=== PATIENT | female | born 1945 | race Caucasian/White ===

== ENCOUNTER 2018-08-11 15:37 | Observation (INO) | payer OTHER ==
[~2018-08-11] VITALS: Ht 162.6 cm; Wt 67.5 kg
[~2018-08-11 15:37] MED LIST: ALPR.25 PO; AMIT25 PO; ASCO250CH PO; ASPI325EC PO; ASPI81EC; ASPI81EC PO; ATEN25; ATEN50 PO; ATENOLOL-? DOSE; Amitriptyline H25 MG PO; B COMPLEX WITH1 EACH PO; CALCAVITD PO; CEPH500 PO; CIPR500; CITA20 PO; CYAN1000I IM; CYCL10 PO; DIPH50 PO; DOCU100 PO; FERR325 PO; FLORASTOR PO; GABA100 PO; HYDACE7.5 PO; HYDMOR2 PO; Hair, Skin & N1 EACH PO; IBUHYD PO; INSLIS75I SC; INSUASPI SC; LEVO750 PO; LEVSOD25 PO; LORA2; MELO7.5; MELO7.5 PO; MEPE50 PO; METCAR500 PO; METO10 PO; METO5A PO; MOM PO; MULVITMINF PO; NAPR500 PO; NITR.4SL SL; NITR.6SL SL; OMEP10ER PO; OMEP20ER PO; OMEPRAZOLE MAGN20 MG PO; OXAP600 PO; PARO20; POTCHL20ER PO; PRAM.5 PO; PRED1 PO; PROZAC20 MG PO; QUET200; QUIN200; VENL75; VENL75ER PO; XANAX PO; ZOLP5 PO; Zofran4 MG PO; [UNRECOGNIZED DRUG - OTHER]; [UNRECOGNIZED DRUG - REMARK]; [UNRECOGNIZED DRUG - REMARK]; [UNRECOGNIZED DRUG - REMARK]
[2018-08-11] MEDS ORDERED: HYDR1TAB94 PO (16:01)
[2018-08-11] MEDS ORDERED: CARV25 PO (16:02)
[2018-08-11 16:19] LABS: BASOPHILS ABSOLUTE AUTO 0.04 K/mm3 (0.00-0.23); BASOPHILS PERCENT AUTO 0 % (0-2); EOSINOPHILS PERCENT AUTO 2 % (0-6); Hematocrit 37.3 % (33.0-51.0); Hemoglobin 11.7 g/dL (11.5-16.0); IMMATURE GRAN ABSOLUTE AUTO 0.03 K/mm3 (0.00-0.10); IMMATURE GRAN PERCENT AUTO 0 % (0-1); LYMPHOCYTES ABSOLUTE AUTO 1.86 K/mm3 (0.84-5.20); LYMPHOCYTES PERCENT AUTO 16 % (21-46); MONOCYTES ABSOLUTE AUTO 0.88 K/mm3 (0.16-1.47); MONOCYTES PERCENT AUTO 8 % (4-13); Mean Corpuscular HGB 28.8 pg (26.0-34.0); Mean Corpuscular HGB Conc 31.4 g/dL (31.5-36.5); Mean Corpuscular Volume 92 fL (80-100); Mean Platelet Volume 8.7 fL (9.1-12.4); NEUTROPHILS ABSOLUTE AUTO 8.53 K/mm3 (1.96-9.15); NEUTROPHILS PERCENT AUTO 74 % (41-73); Platelet Count 329 K/mm3 (150-400); RDW Coefficient Variation 13.9 % (11.7-14.2); RDW Standard Deviation 47.8 fL (35.1-46.3); Red Blood Cell Count 4.06 M/mm3 (3.80-5.20); White Blood Cell Count 11.54 K/mm3 (4.00-11.30)
[2018-08-11 16:33] LABS: Alanine Aminotransfer (ALT/SGP 16 U/L (12-78); Albumin, Blood 2.6 g/dL (3.4-5.0); Albumin/Globulin Ratio 0.5 (0.8-1.8); Alk Phos 129 U/L (50-136); Anion Gap 10 mmol/L (6-16); Aspartate Aminotrans (AST/SGOT 19 U/L (12-37); Bilirubin, Total 0.3 mg/dL (0.1-1.0); Blood Urea Nitrogen 11 mg/dL (8-24); Bun/Creatinine Ratio 14.5 (12.0-20.0); CO2, Blood 24 mmol/L (21-32); Calcium, Blood 8.5 mg/dL (8.5-10.1); Chloride, Blood 104 mmol/L (98-108); Creatinine, Blood 0.76 mg/dL (0.40-1.00); Globulin, Blood 5.1 g/dL (2.2-4.0); Glomerular Filtration Rate >60 (60-); Glucose, Blood 112 mg/dL (70-99); Potassium, Blood 3.4 mmol/L (3.5-5.5); Sodium, Blood 138 mmol/L (136-145); Total Protein, Blood 7.7 g/dL (6.4-8.2); Troponin I <0.015 ng/mL (0.000-0.040)
[2018-08-11] MEDS ORDERED: FLUO10 PO (21:35)
[2018-08-11] MEDS ORDERED: ATOR10 PO (21:35)
[2018-08-12 05:39] LABS: Anion Gap 11 mmol/L (6-16); Blood Urea Nitrogen 8 mg/dL (8-24); Bun/Creatinine Ratio 14.4 (12.0-20.0); CO2, Blood 23 mmol/L (21-32); Calcium, Blood 8.2 mg/dL (8.5-10.1); Chloride, Blood 105 mmol/L (98-108); Creatinine, Blood 0.56 mg/dL (0.40-1.00); Glomerular Filtration Rate >60 (60-); Glucose, Blood 131 mg/dL (70-99); Potassium, Blood 3.2 mmol/L (3.5-5.5); Sodium, Blood 139 mmol/L (136-145); Troponin I <0.015 ng/mL (0.000-0.040)
== END 2018-08-12 11:51 | disposition home or self-care (01) ==
LOC: ER 15:37 → MEDS 15:38 → ENPENDDIS 08-12 09:59 → MEDS 08-12 11:51
PROVIDERS: Emergency Medicine; Hospitalist
DX: R07.89 Other chest pain (principal); I10 Essential (primary) hypertension; K21.9 Gastro-esophageal reflux disease without esophagitis; M19.90 Unspecified osteoarthritis, unspecified site; F41.9 Anxiety disorder, unspecified; K22.4 Dyskinesia of esophagus; I25.2 Old myocardial infarction; J44.9 Chronic obstructive pulmonary disease, unspecified; E03.9 Hypothyroidism, unspecified; Z87.891 Personal history of nicotine dependence
CPT/HCPCS: 36415; 71046; 80048; 80053; 84484; 85025; 93005; 93010; 96374; 99285-25; J0360; J1650

== ENCOUNTER 2019-03-09 11:11 | Emergency (ER) | payer OTHER ==
[~2019-03-09] VITALS: Ht 162.6 cm; Wt 68.0 kg
[~2019-03-09 11:11] MED LIST changes: +ATOR10 PO; +CARV25 PO; +FLUO10 PO; +HYDR1TAB94 PO
[2019-03-09 11:44] LABS: BASOPHILS ABSOLUTE AUTO 0.05 K/mm3 (0.00-0.23); BASOPHILS PERCENT AUTO 1 % (0-2); EOSINOPHILS ABSOLUTE AUTO 0.25 K/mm3 (0.00-0.68); EOSINOPHILS PERCENT AUTO 3 % (0-6); Hematocrit 32.8 % (33.0-51.0); IMMATURE GRAN ABSOLUTE AUTO 0.03 K/mm3 (0.00-0.10); IMMATURE GRAN PERCENT AUTO 0 % (0-1); LYMPHOCYTES PERCENT AUTO 23 % (21-46); MONOCYTES ABSOLUTE AUTO 0.75 K/mm3 (0.16-1.47); MONOCYTES PERCENT AUTO 9 % (4-13); Mean Corpuscular HGB Conc 30.5 g/dL (31.5-36.5); Mean Corpuscular Volume 85 fL (80-100); Mean Platelet Volume 9.2 fL (9.1-12.4); NEUTROPHILS ABSOLUTE AUTO 5.54 K/mm3 (1.96-9.15); NEUTROPHILS PERCENT AUTO 64 % (41-73); Platelet Count 260 K/mm3 (150-400); RDW Coefficient Variation 16.6 % (11.7-14.2); RDW Standard Deviation 51.8 fL (35.1-46.3); Red Blood Cell Count 3.84 M/mm3 (3.80-5.20); White Blood Cell Count 8.62 K/mm3 (4.00-11.30)
[2019-03-09 12:00] LABS: Alanine Aminotransfer (ALT/SGP 13 U/L (12-78); Albumin/Globulin Ratio 0.7 (0.8-1.8); Alk Phos 107 U/L (50-136); Anion Gap 5 mmol/L (6-16); Aspartate Aminotrans (AST/SGOT 12 U/L (12-37); Bilirubin, Total 0.3 mg/dL (0.1-1.0); Blood Urea Nitrogen 13 mg/dL (8-24); Bun/Creatinine Ratio 16.9 (12.0-20.0); CO2, Blood 29 mmol/L (21-32); Calcium, Blood 8.5 mg/dL (8.5-10.1); Chloride, Blood 102 mmol/L (98-108); Creatinine, Blood 0.77 mg/dL (0.40-1.00); Globulin, Blood 4.3 g/dL (2.2-4.0); Glomerular Filtration Rate >60 (60-); Glucose, Blood 95 mg/dL (70-99); Potassium, Blood 3.9 mmol/L (3.5-5.5); Sodium, Blood 136 mmol/L (136-145); Total Protein, Blood 7.3 g/dL (6.4-8.2); Troponin I <0.015 ng/mL (0.000-0.040)
[2019-03-09] MEDS ORDERED: METF500 PO (12:07)
[2019-03-09] MEDS ORDERED: LISI5 PO (12:08)
[2019-03-09] MEDS ORDERED: FLUO10 PO (12:08)
[2019-03-09] MEDS ORDERED: TRELEGY ELLIPT1 EACH IH (12:09)
[2019-03-09] MEDS ORDERED: COMBIVENT RESPIM4 GM INH (12:09)
[2019-03-09] MEDS ORDERED: OMEP20ER PO (12:09)
[2019-03-09] MEDS ORDERED: AMIT50 PO (12:10)
[2019-03-09] MEDS ORDERED: ATOR10 PO (12:10)
[2019-03-09] MEDS ORDERED: PRAM.5 PO (12:11)
[2019-03-09] MEDS ORDERED: GABA100 PO (12:11)
[2019-03-09] MEDS ORDERED: NITR.4SL SL (12:11)
[2019-03-09] MEDS ORDERED: CARV6.25 PO (12:12)
[2019-03-09] MEDS ORDERED: HYDR1TAB94 PO (14:05)
== END 2019-03-09 15:26 | disposition home or self-care (01) ==
LOC: ER 11:11
PROVIDERS: Emergency Medicine
DX: S00.83XA Contusion of other part of head, initial encounter (principal); R55 Syncope and collapse; W01.198A Fall on same level from slipping, tripping and stumbling with subsequent striking against other object, initial encounter; Z88.0 Allergy status to penicillin; Z88.5 Allergy status to narcotic agent; Z91.041 Radiographic dye allergy status; Z79.899 Other long term (current) drug therapy; Z79.84 Long term (current) use of oral hypoglycemic drugs; I10 Essential (primary) hypertension; E03.9 Hypothyroidism, unspecified; J44.9 Chronic obstructive pulmonary disease, unspecified; I25.2 Old myocardial infarction; Z87.891 Personal history of nicotine dependence
CPT/HCPCS: 70450; 71046; 72125; 80053; 84484; 85025; 93005; 93010; 96374; 96375; 99285-25; A9270; J1170; J2405

== ENCOUNTER → 2019-03-31 | Outpatient (CLI) | payer OTHER ==
[~2019-03-31] MED LIST changes: +AMIT50 PO; +CARV6.25 PO; +COMBIVENT RESPIM4 GM INH; +LISI5 PO; +METF500 PO; +Phenergan6.25 MG/5 PO; +TRELEGY ELLIPT1 EACH IH
== END | disposition home or self-care (01) ==
LOC: LAB 18:56 → LAB SHORT 18:56 → LAB FUT 02-17 12:30
DX: J42 Unspecified chronic bronchitis (principal)
CPT/HCPCS: 87070; 87077; 87147; 87186; 87205

== ENCOUNTER 2019-04-22 11:42 | Emergency (ER) | payer OTHER ==
[~2019-04-22] VITALS: Ht 162.6 cm; Wt 72.6 kg
[~2019-04-22 11:42] MED LIST changes: -Phenergan6.25 MG/5 PO
[2019-04-22 12:23] LABS: BASOPHILS ABSOLUTE AUTO 0.04 K/mm3 (0.00-0.23); BASOPHILS PERCENT AUTO 1 % (0-2); EOSINOPHILS ABSOLUTE AUTO 0.16 K/mm3 (0.00-0.68); EOSINOPHILS PERCENT AUTO 2 % (0-6); Hematocrit 31.4 % (33.0-51.0); Hemoglobin 9.9 g/dL (11.5-16.0); IMMATURE GRAN ABSOLUTE AUTO 0.03 K/mm3 (0.00-0.10); IMMATURE GRAN PERCENT AUTO 0 % (0-1); LYMPHOCYTES ABSOLUTE AUTO 1.96 K/mm3 (0.84-5.20); LYMPHOCYTES PERCENT AUTO 22 % (21-46); MONOCYTES ABSOLUTE AUTO 0.99 K/mm3 (0.16-1.47); MONOCYTES PERCENT AUTO 11 % (4-13); Mean Corpuscular HGB 25.6 pg (26.0-34.0); Mean Corpuscular HGB Conc 31.5 g/dL (31.5-36.5); Mean Corpuscular Volume 81 fL (80-100); Mean Platelet Volume 8.7 fL (9.1-12.4); NEUTROPHILS ABSOLUTE AUTO 5.56 K/mm3 (1.96-9.15); NEUTROPHILS PERCENT AUTO 64 % (41-73); Platelet Count 305 K/mm3 (150-400); RDW Coefficient Variation 17.5 % (11.7-14.2); Red Blood Cell Count 3.86 M/mm3 (3.80-5.20); White Blood Cell Count 8.74 K/mm3 (4.00-11.30)
[2019-04-22 12:43] LABS: Alanine Aminotransfer (ALT/SGP 18 U/L (12-78); Albumin, Blood 2.9 g/dL (3.4-5.0); Albumin/Globulin Ratio 0.7 (0.8-1.8); Alk Phos 90 U/L (50-136); Anion Gap 6 mmol/L (6-16); Aspartate Aminotrans (AST/SGOT 17 U/L (12-37); Bilirubin, Total 0.3 mg/dL (0.1-1.0); Blood Urea Nitrogen 8 mg/dL (8-24); Bun/Creatinine Ratio 13.2 (12.0-20.0); CO2, Blood 26 mmol/L (21-32); Calcium, Blood 8.6 mg/dL (8.5-10.1); Chloride, Blood 100 mmol/L (98-108); Creatinine, Blood 0.61 mg/dL (0.40-1.00); Globulin, Blood 4.3 g/dL (2.2-4.0); Glomerular Filtration Rate >60 (60-); Glucose, Blood 85 mg/dL (70-99); Potassium, Blood 4.4 mmol/L (3.5-5.5); Sodium, Blood 132 mmol/L (136-145); Total Protein, Blood 7.2 g/dL (6.4-8.2); Troponin I <0.015 ng/mL (0.000-0.040)
[2019-04-22] MEDS ORDERED: Phenergan6.25 MG/5 PO (14:25)
== END 2019-04-22 14:30 | disposition home or self-care (01) ==
LOC: ER 11:42
PROVIDERS: Emergency Medicine
DX: J42 Unspecified chronic bronchitis (principal); I10 Essential (primary) hypertension; Z87.891 Personal history of nicotine dependence; Z79.899 Other long term (current) drug therapy; Z79.84 Long term (current) use of oral hypoglycemic drugs
CPT/HCPCS: 71046; 80053; 84484; 85025; 93005; 93010; 99285-25

== ENCOUNTER → 2020-02-24 | Outpatient (CLI) | payer OTHER ==
[~2020-02-24] MED LIST changes: +Phenergan6.25 MG/5 PO
== END | disposition home or self-care (01) ==
LOC: LAB 11:05 → LAB SHORT 11:05
DX: J42 Unspecified chronic bronchitis (principal)
CPT/HCPCS: 87070; 87077; 87147; 87186; 87205

== ENCOUNTER → 2020-05-08 | Outpatient (CLI) | payer OTHER ==
[2020-05-08 14:56] LABS: Alanine Aminotransfer (ALT/SGP 18 U/L (12-78); Albumin, Blood 3.1 g/dL (3.4-5.0); Albumin/Globulin Ratio 0.8 (0.8-1.8); Alk Phos 81 U/L (50-136); Anion Gap 8 mmol/L (6-16); Aspartate Aminotrans (AST/SGOT 18 U/L (12-37); Bilirubin, Total 0.2 mg/dL (0.1-1.0); Blood Urea Nitrogen 11 mg/dL (8-24); Bun/Creatinine Ratio 18.7 (12.0-20.0); CHOL/HDL RATIO 1.9; CO2, Blood 24 mmol/L (21-32); Calcium, Blood 8.9 mg/dL (8.5-10.1); Chloride, Blood 97 mmol/L (98-108); Cholesterol 157 mg/dL (50-200); Creatinine, Blood 0.59 mg/dL (0.40-1.00); Globulin, Blood 4.1 g/dL (2.2-4.0); Glomerular Filtration Rate >60 (60-); Glucose, Blood 88 mg/dL (70-99); HDL Cholesterol 83 mg/dL (>39); LDL/HDL RATIO 0.8; Low Density Lipoprotein Chol 64 mg/dL (0-110); Potassium, Blood 4.4 mmol/L (3.5-5.5); Sodium, Blood 129 mmol/L (136-145); Total Protein, Blood 7.2 g/dL (6.4-8.2); Triglycerides 48 mg/dL (30-160); Very Low Density Lipoprot Chol 9 mg/dL (6-32)
== END | disposition home or self-care (01) ==
LOC: LAB 12:49 → LAB SHORT 12:49
PROVIDERS: Nurse Practitioner Family
DX: E78.5 Hyperlipidemia, unspecified (principal); R60.0 Localized edema
CPT/HCPCS: 80053; 80061

== ENCOUNTER → 2020-05-21 | Outpatient (CLI) | payer OTHER | END | disposition home or self-care (01) | LOC: LAB SHORT 12:00 → LAB 12:00 | DX: R91.1 Solitary pulmonary nodule (principal); J42 Unspecified chronic bronchitis | CPT/HCPCS: 87070; 87077; 87186; 87205 ==

== ENCOUNTER 2020-06-11 11:37 | Inpatient (IN) | payer OTHER ==
[~2020-06-11] VITALS: Ht 162.6 cm; Wt 72.0 kg
[2020-06-11 12:14] LABS: BASOPHILS ABSOLUTE AUTO 0.08 K/mm3 (0.00-0.23); BASOPHILS PERCENT AUTO 0 % (0-2); EOSINOPHILS ABSOLUTE AUTO 0.02 K/mm3 (0.00-0.68); EOSINOPHILS PERCENT AUTO 0 % (0-6); Hemoglobin 11.9 g/dL (11.5-16.0); IMMATURE GRAN ABSOLUTE AUTO 0.23 K/mm3 (0.00-0.10); IMMATURE GRAN PERCENT AUTO 1 % (0-1); LYMPHOCYTES ABSOLUTE AUTO 1.36 K/mm3 (0.84-5.20); LYMPHOCYTES PERCENT AUTO 5 % (21-46); MONOCYTES ABSOLUTE AUTO 1.69 K/mm3 (0.16-1.47); MONOCYTES PERCENT AUTO 7 % (4-13); Mean Corpuscular HGB 27.4 pg (26.0-34.0); Mean Corpuscular HGB Conc 31.3 g/dL (31.5-36.5); Mean Corpuscular Volume 87 fL (80-100); Mean Platelet Volume 8.6 fL (9.1-12.4); NEUTROPHILS ABSOLUTE AUTO 22.31 K/mm3 (1.96-9.15); NEUTROPHILS PERCENT AUTO 87 % (41-73); Platelet Count 543 K/mm3 (150-400); RDW Coefficient Variation 14.3 % (11.7-14.2); RDW Standard Deviation 46.5 fL (35.1-46.3); Red Blood Cell Count 4.35 M/mm3 (3.80-5.20); White Blood Cell Count 25.69 K/mm3 (4.00-11.30)
[2020-06-11 12:41] LABS: Alanine Aminotransfer (ALT/SGP 13 U/L (12-78); Albumin, Blood 2.3 g/dL (3.4-5.0); Albumin/Globulin Ratio 0.4 (0.8-1.8); Alk Phos 108 U/L (50-136); Anion Gap 12 mmol/L (6-16); Aspartate Aminotrans (AST/SGOT 14 U/L (12-37); Bilirubin, Total 0.5 mg/dL (0.1-1.0); Blood Urea Nitrogen 17 mg/dL (8-24); Bun/Creatinine Ratio 28.9 (12.0-20.0); CO2, Blood 23 mmol/L (21-32); Calcium, Blood 9.8 mg/dL (8.5-10.1); Chloride, Blood 96 mmol/L (98-108); Creatinine, Blood 0.59 mg/dL (0.40-1.00); Globulin, Blood 5.8 g/dL (2.2-4.0); Glomerular Filtration Rate >60 (60-); Glucose, Blood 174 mg/dL (70-99); Potassium, Blood 4.2 mmol/L (3.5-5.5); Sodium, Blood 131 mmol/L (136-145); Total Protein, Blood 8.1 g/dL (6.4-8.2); Troponin I <0.015 ng/mL (0.000-0.040)
[2020-06-11] MEDS ORDERED: COMBIVENT RESPIM4 G1 INH (13:50)
[2020-06-11] MEDS ORDERED: ARIPIPRAZOLE10 M1 PO (13:51)
[2020-06-11] MEDS ORDERED: OMEP20ER PO (13:51)
[2020-06-11] MEDS ORDERED: METFORMIN HCL500 M3 PO (13:51)
[2020-06-11] MEDS ORDERED: SPIRONOLACTONE25 MG PO (13:52)
[2020-06-11] MEDS ORDERED: FLUO10 PO (13:52)
[2020-06-11] MEDS ORDERED: PRAM.5 PO (13:53)
[2020-06-11] MEDS ORDERED: GABA100 PO (13:53)
[2020-06-11] MEDS ORDERED: LISI5 PO (13:53)
[2020-06-11] MEDS ORDERED: ATORVASTATIN CA20 MG PO (13:54)
[2020-06-11 13:58] LABS: Source, Urine Clean Catch
[2020-06-11 14:06] LABS: Appearance, Urine Hazy (Clear); Bilirubin, Urine Neg (Neg); Blood, Urine 3+ (Neg); Color, Urine Amber (P-Yellow); Glucose Qualitative, Urine Neg (Neg); Ketones, Urine 4+ (Neg); Leukocyte Esterase, Urine 3+ (Neg); Nitrite, Urine Neg (Neg); Protein, Urine 2+ (Neg); Specific Gravity, Urine 1.025 (1.003-1.022); Urobilinogen, Urine 1+ (Normal)
[2020-06-11 14:22] LABS: International Normalized Ratio 1.9; Prothrombin Time Results 19.6 Sec (9.7-11.5)
[2020-06-11 14:29] LABS: Bacteria Mod /hpf; Mucus Light (0-Heavy); Squamous Epithelial Cells Mod /hpf (Few)
[2020-06-11 14:30] LABS: Amorphous Light (0-Heavy); Transitional Epithelial Cells Few /hpf (0-Rare)
[2020-06-12 04:16] LABS: BASOPHILS ABSOLUTE AUTO 0.06 K/mm3 (0.00-0.23); BASOPHILS PERCENT AUTO 0 % (0-2); EOSINOPHILS ABSOLUTE AUTO 0.09 K/mm3 (0.00-0.68); EOSINOPHILS PERCENT AUTO 1 % (0-6); Hematocrit 31.1 % (33.0-51.0); Hemoglobin 9.8 g/dL (11.5-16.0); IMMATURE GRAN ABSOLUTE AUTO 0.12 K/mm3 (0.00-0.10); IMMATURE GRAN PERCENT AUTO 1 % (0-1); LYMPHOCYTES ABSOLUTE AUTO 1.77 K/mm3 (0.84-5.20); LYMPHOCYTES PERCENT AUTO 10 % (21-46); MONOCYTES ABSOLUTE AUTO 1.57 K/mm3 (0.16-1.47); MONOCYTES PERCENT AUTO 9 % (4-13); Mean Corpuscular HGB 27.5 pg (26.0-34.0); Mean Corpuscular HGB Conc 31.5 g/dL (31.5-36.5); Mean Corpuscular Volume 87 fL (80-100); Mean Platelet Volume 8.3 fL (9.1-12.4); NEUTROPHILS PERCENT AUTO 79 % (41-73); Platelet Count 461 K/mm3 (150-400); RDW Coefficient Variation 14.5 % (11.7-14.2); RDW Standard Deviation 46.5 fL (35.1-46.3); Red Blood Cell Count 3.57 M/mm3 (3.80-5.20); White Blood Cell Count 17.21 K/mm3 (4.00-11.30)
[2020-06-12 04:38] LABS: Alanine Aminotransfer (ALT/SGP 9 U/L (12-78); Albumin, Blood 1.7 g/dL (3.4-5.0); Albumin/Globulin Ratio 0.4 (0.8-1.8); Alk Phos 75 U/L (50-136); Anion Gap 8 mmol/L (6-16); Aspartate Aminotrans (AST/SGOT 12 U/L (12-37); Bilirubin, Total 0.4 mg/dL (0.1-1.0); Blood Urea Nitrogen 12 mg/dL (8-24); Bun/Creatinine Ratio 23.5 (12.0-20.0); CO2, Blood 24 mmol/L (21-32); Calcium, Blood 8.1 mg/dL (8.5-10.1); Chloride, Blood 103 mmol/L (98-108); Creatinine, Blood 0.51 mg/dL (0.40-1.00); Globulin, Blood 4.8 g/dL (2.2-4.0); Glomerular Filtration Rate >60 (60-); Glucose, Blood 161 mg/dL (70-99); Potassium, Blood 3.7 mmol/L (3.5-5.5); Sodium, Blood 135 mmol/L (136-145); Total Protein, Blood 6.5 g/dL (6.4-8.2)
[2020-06-12 04:42] LABS: Magnesium, Blood 1.1 mg/dL (1.6-2.4)
[2020-06-13 03:57] LABS: BASOPHILS ABSOLUTE AUTO 0.04 K/mm3 (0.00-0.23); BASOPHILS PERCENT AUTO 0 % (0-2); EOSINOPHILS ABSOLUTE AUTO 0.01 K/mm3 (0.00-0.68); EOSINOPHILS PERCENT AUTO 0 % (0-6); Hematocrit 29.4 % (33.0-51.0); Hemoglobin 9.1 g/dL (11.5-16.0); IMMATURE GRAN ABSOLUTE AUTO 0.11 K/mm3 (0.00-0.10); IMMATURE GRAN PERCENT AUTO 1 % (0-1); LYMPHOCYTES ABSOLUTE AUTO 1.35 K/mm3 (0.84-5.20); LYMPHOCYTES PERCENT AUTO 11 % (21-46); MONOCYTES ABSOLUTE AUTO 0.77 K/mm3 (0.16-1.47); MONOCYTES PERCENT AUTO 6 % (4-13); Mean Corpuscular HGB 27.3 pg (26.0-34.0); Mean Corpuscular Volume 88 fL (80-100); Mean Platelet Volume 8.8 fL (9.1-12.4); NEUTROPHILS ABSOLUTE AUTO 10.27 K/mm3 (1.96-9.15); NEUTROPHILS PERCENT AUTO 82 % (41-73); Platelet Count 388 K/mm3 (150-400); RDW Coefficient Variation 14.5 % (11.7-14.2); RDW Standard Deviation 46.6 fL (35.1-46.3); Red Blood Cell Count 3.33 M/mm3 (3.80-5.20); White Blood Cell Count 12.55 K/mm3 (4.00-11.30)
[2020-06-13 04:16] LABS: Anion Gap 7 mmol/L (6-16); Blood Urea Nitrogen 12 mg/dL (8-24); Bun/Creatinine Ratio 25.8 (12.0-20.0); CO2, Blood 24 mmol/L (21-32); Calcium, Blood 8.2 mg/dL (8.5-10.1); Chloride, Blood 102 mmol/L (98-108); Creatinine, Blood 0.47 mg/dL (0.40-1.00); Glomerular Filtration Rate >60 (60-); Glucose, Blood 268 mg/dL (70-99); Magnesium, Blood 1.6 mg/dL (1.6-2.4); Sodium, Blood 133 mmol/L (136-145)
[2020-06-13 18:13] LABS: Vancomycin, Trough 7.9 ug/mL (5.0-10.0)
[2020-06-14 03:59] LABS: BASOPHILS ABSOLUTE AUTO 0.05 K/mm3 (0.00-0.23); BASOPHILS PERCENT AUTO 0 % (0-2); EOSINOPHILS ABSOLUTE AUTO 0.18 K/mm3 (0.00-0.68); EOSINOPHILS PERCENT AUTO 2 % (0-6); Hematocrit 29.6 % (33.0-51.0); Hemoglobin 9.3 g/dL (11.5-16.0); IMMATURE GRAN ABSOLUTE AUTO 0.07 K/mm3 (0.00-0.10); IMMATURE GRAN PERCENT AUTO 1 % (0-1); LYMPHOCYTES ABSOLUTE AUTO 2.38 K/mm3 (0.84-5.20); LYMPHOCYTES PERCENT AUTO 20 % (21-46); MONOCYTES ABSOLUTE AUTO 0.95 K/mm3 (0.16-1.47); MONOCYTES PERCENT AUTO 8 % (4-13); Mean Corpuscular HGB 27.8 pg (26.0-34.0); Mean Corpuscular HGB Conc 31.4 g/dL (31.5-36.5); Mean Corpuscular Volume 88 fL (80-100); Mean Platelet Volume 8.7 fL (9.1-12.4); NEUTROPHILS ABSOLUTE AUTO 8.35 K/mm3 (1.96-9.15); NEUTROPHILS PERCENT AUTO 70 % (41-73); Platelet Count 417 K/mm3 (150-400); RDW Coefficient Variation 14.6 % (11.7-14.2); RDW Standard Deviation 47.3 fL (35.1-46.3); Red Blood Cell Count 3.35 M/mm3 (3.80-5.20); White Blood Cell Count 11.98 K/mm3 (4.00-11.30)
[2020-06-14 04:22] LABS: Anion Gap 6 mmol/L (6-16); Blood Urea Nitrogen 10 mg/dL (8-24); Bun/Creatinine Ratio 18.9 (12.0-20.0); CO2, Blood 25 mmol/L (21-32); Calcium, Blood 8.4 mg/dL (8.5-10.1); Chloride, Blood 109 mmol/L (98-108); Creatinine, Blood 0.53 mg/dL (0.40-1.00); Glomerular Filtration Rate >60 (60-); Glucose, Blood 99 mg/dL (70-99); Magnesium, Blood 1.5 mg/dL (1.6-2.4); Potassium, Blood 3.6 mmol/L (3.5-5.5); Sodium, Blood 140 mmol/L (136-145)
[2020-06-15 04:44] LABS: BASOPHILS ABSOLUTE AUTO 0.05 K/mm3 (0.00-0.23); BASOPHILS PERCENT AUTO 1 % (0-2); EOSINOPHILS ABSOLUTE AUTO 0.21 K/mm3 (0.00-0.68); EOSINOPHILS PERCENT AUTO 2 % (0-6); Hematocrit 32.7 % (33.0-51.0); Hemoglobin 10.3 g/dL (11.5-16.0); IMMATURE GRAN ABSOLUTE AUTO 0.06 K/mm3 (0.00-0.10); IMMATURE GRAN PERCENT AUTO 1 % (0-1); LYMPHOCYTES PERCENT AUTO 26 % (21-46); MONOCYTES ABSOLUTE AUTO 0.76 K/mm3 (0.16-1.47); MONOCYTES PERCENT AUTO 9 % (4-13); Mean Corpuscular HGB 27.6 pg (26.0-34.0); Mean Corpuscular HGB Conc 31.5 g/dL (31.5-36.5); Mean Corpuscular Volume 88 fL (80-100); Mean Platelet Volume 8.7 fL (9.1-12.4); NEUTROPHILS ABSOLUTE AUTO 5.35 K/mm3 (1.96-9.15); NEUTROPHILS PERCENT AUTO 62 % (41-73); Platelet Count 474 K/mm3 (150-400); RDW Coefficient Variation 14.6 % (11.7-14.2); RDW Standard Deviation 46.5 fL (35.1-46.3); Red Blood Cell Count 3.73 M/mm3 (3.80-5.20); White Blood Cell Count 8.63 K/mm3 (4.00-11.30)
[2020-06-15 05:07] LABS: Anion Gap 7 mmol/L (6-16); Blood Urea Nitrogen 7 mg/dL (8-24); Bun/Creatinine Ratio 12.9 (12.0-20.0); CO2, Blood 26 mmol/L (21-32); Calcium, Blood 8.7 mg/dL (8.5-10.1); Chloride, Blood 107 mmol/L (98-108); Creatinine, Blood 0.54 mg/dL (0.40-1.00); Glomerular Filtration Rate >60 (60-); Glucose, Blood 87 mg/dL (70-99); Magnesium, Blood 1.6 mg/dL (1.6-2.4); Potassium, Blood 3.7 mmol/L (3.5-5.5); Sodium, Blood 140 mmol/L (136-145)
[2020-06-15 19:03] LABS: Vancomycin, Trough 13.3 ug/mL (5.0-10.0)
[2020-06-16 05:08] LABS: BASOPHILS ABSOLUTE AUTO 0.04 K/mm3 (0.00-0.23); BASOPHILS PERCENT AUTO 1 % (0-2); EOSINOPHILS ABSOLUTE AUTO 0.29 K/mm3 (0.00-0.68); EOSINOPHILS PERCENT AUTO 3 % (0-6); Hematocrit 31.9 % (33.0-51.0); Hemoglobin 10.2 g/dL (11.5-16.0); IMMATURE GRAN ABSOLUTE AUTO 0.07 K/mm3 (0.00-0.10); IMMATURE GRAN PERCENT AUTO 1 % (0-1); LYMPHOCYTES ABSOLUTE AUTO 2.09 K/mm3 (0.84-5.20); LYMPHOCYTES PERCENT AUTO 25 % (21-46); MONOCYTES PERCENT AUTO 10 % (4-13); Mean Corpuscular HGB 27.9 pg (26.0-34.0); Mean Corpuscular Volume 87 fL (80-100); Mean Platelet Volume 8.8 fL (9.1-12.4); NEUTROPHILS ABSOLUTE AUTO 5.14 K/mm3 (1.96-9.15); NEUTROPHILS PERCENT AUTO 61 % (41-73); Platelet Count 446 K/mm3 (150-400); RDW Coefficient Variation 14.6 % (11.7-14.2); RDW Standard Deviation 47.1 fL (35.1-46.3); Red Blood Cell Count 3.66 M/mm3 (3.80-5.20); White Blood Cell Count 8.43 K/mm3 (4.00-11.30)
[2020-06-16 05:33] LABS: Anion Gap 5 mmol/L (6-16); Blood Urea Nitrogen 6 mg/dL (8-24); Bun/Creatinine Ratio 11.8 (12.0-20.0); CO2, Blood 30 mmol/L (21-32); Calcium, Blood 8.8 mg/dL (8.5-10.1); Chloride, Blood 105 mmol/L (98-108); Creatinine, Blood 0.51 mg/dL (0.40-1.00); Glomerular Filtration Rate >60 (60-); Glucose, Blood 89 mg/dL (70-99); Magnesium, Blood 1.7 mg/dL (1.6-2.4); Potassium, Blood 3.7 mmol/L (3.5-5.5); Sodium, Blood 140 mmol/L (136-145)
[2020-06-17 20:01] LABS: Vancomycin, Trough 14.2 ug/mL (5.0-10.0)
[2020-06-18] MEDS ORDERED: MIRALAX17 GM PO (14:16)
[2020-06-18] MEDS ORDERED: VISBIOME PROBIOTIC PO (14:17)
[2020-06-18] MEDS ORDERED: ALBU90OI INH (14:18)
[2020-06-18] MEDS ORDERED: ASPI81CH PO (14:18)
[2020-06-18] MEDS ORDERED: LINE600 PO (14:19)
[2020-06-18] MEDS ORDERED: ACET325 PO (14:24)
[2020-06-18] MEDS ORDERED: BISA10S PR (14:25)
[2020-06-18] MEDS ORDERED: BENZ100A PO (14:25)
[2020-06-18] MEDS ORDERED: AZO PO (14:26)
[2020-06-18] MEDS ORDERED: DOCU100 PO (14:27)
[2020-06-18] MEDS ORDERED: ONDA4 PO (14:28)
[2020-06-18] MEDS ORDERED: HYDR1TAB94 PO (14:28)
[2020-06-18] MEDS ORDERED: SENN187 PO (14:29)
[2020-06-18] MEDS ORDERED: MELATONIN5 M1 PO (14:30)
== END 2020-06-18 14:55 | disposition home health service (06) | DRG 871 ==
LOC: ER 11:37 → PCU 13:35 → MEDS 13:35 → PCU 16:19 → MEDS 06-14 15:28
PROVIDERS: Emergency Medicine; Pharmacist; ADMIT Family Medicine
DX: A41.02 Sepsis due to Methicillin resistant Staphylococcus aureus (principal); J15.212 Pneumonia due to Methicillin resistant Staphylococcus aureus; J96.21 Acute and chronic respiratory failure with hypoxia; E87.1 Hypo-osmolality and hyponatremia; J44.0 Chronic obstructive pulmonary disease with (acute) lower respiratory infection; R04.2 Hemoptysis; N39.0 Urinary tract infection, site not specified; I51.81 Takotsubo syndrome; K52.1 Toxic gastroenteritis and colitis; Z66 Do not resuscitate; T36.95XA Adverse effect of unspecified systemic antibiotic, initial encounter; Z51.5 Encounter for palliative care; Z20.828 Contact with and (suspected) exposure to other viral communicable diseases; R65.20 Severe sepsis without septic shock; E83.42 Hypomagnesemia; I10 Essential (primary) hypertension; I25.10 Atherosclerotic heart disease of native coronary artery without angina pectoris; E11.65 Type 2 diabetes mellitus with hyperglycemia; G47.00 Insomnia, unspecified; D69.6 Thrombocytopenia, unspecified; K21.9 Gastro-esophageal reflux disease without esophagitis; G89.29 Other chronic pain; M54.9 Dorsalgia, unspecified; E03.9 Hypothyroidism, unspecified; F32.9 Major depressive disorder, single episode, unspecified; F41.9 Anxiety disorder, unspecified; E78.5 Hyperlipidemia, unspecified; E11.40 Type 2 diabetes mellitus with diabetic neuropathy, unspecified; K57.30 Diverticulosis of large intestine without perforation or abscess without bleeding; K40.90 Unilateral inguinal hernia, without obstruction or gangrene, not specified as recurrent; Z86.14 Personal history of Methicillin resistant Staphylococcus aureus infection; I25.2 Old myocardial infarction; Z87.891 Personal history of nicotine dependence; Z88.5 Allergy status to narcotic agent; Z88.0 Allergy status to penicillin; Z88.2 Allergy status to sulfonamides; Z88.8 Allergy status to other drugs, medicaments and biological substances; Z91.040 Latex allergy status; Z98.84 Bariatric surgery status; Z79.84 Long term (current) use of oral hypoglycemic drugs
CPT/HCPCS: 36415; 71045; 71046; 71250; 74176; 80048; 80053; 80202; 81001; 82947; 83605; 83735; 84145; 84484; 85025; 85610; 85730; 87040; 87070; 87077; 87086; 87147; 87186; 87205; 93005; 93010; 94640; 94667; 94668; 94760; 94761; 94762; 96361; 96365; 97110; 97116; 97162; 97165; 97530; 97535; 99285-25; A9270; A9270-GY; C1751; J0456; J0692; J0696; J1650; J3370; J3420; J3475; J7030; J7050; J7512; P9046; U0003

== ENCOUNTER → 2021-05-29 | Outpatient (CLI) | payer OTHER ==
[~2021-05-29] MED LIST changes: +ACET325 PO; +ALBU90OI INH; +ARIPIPRAZOLE10 M1 PO; +ASPI81CH PO; +ATORVASTATIN CA20 MG PO; +AZO PO; +BENZ100A PO; +BISA10S PR; +COMBIVENT RESPIM4 G1 INH; +LINE600 PO; +MELATONIN5 M1 PO; +METFORMIN HCL500 M3 PO; +MIRALAX17 GM PO; +ONDA4 PO; +SENN187 PO; +SPIRONOLACTONE25 MG PO; +VISBIOME PROBIOTIC PO
== END | disposition home or self-care (01) ==
LOC: LAB SHORT 18:04
DX: J42 Unspecified chronic bronchitis (principal)
CPT/HCPCS: 87070; 87077; 87185; 87205

== ENCOUNTER 2021-07-24 12:01 | Emergency (ER) | payer OTHER ==
[~2021-07-24] VITALS: Ht 157.5 cm; Wt 61.2 kg
[2021-07-24 13:34] LABS: Alanine Aminotransfer (ALT/SGP 11 U/L (12-78); Albumin/Globulin Ratio 0.4 (0.8-1.8); Alk Phos 88 U/L (50-136); Anion Gap 9 mmol/L (6-16); Aspartate Aminotrans (AST/SGOT 20 U/L (12-37); Bilirubin, Total 0.8 mg/dL (0.1-1.0); Blood Urea Nitrogen 8 mg/dL (8-24); Bun/Creatinine Ratio 11.9 (12.0-20.0); CO2, Blood 28 mmol/L (21-32); Calcium, Blood 8.7 mg/dL (8.5-10.1); Chloride, Blood 102 mmol/L (98-108); Creatinine, Blood 0.67 mg/dL (0.40-1.00); Globulin, Blood 4.8 g/dL (2.2-4.0); Glomerular Filtration Rate >60 (60-); Glucose, Blood 71 mg/dL (70-99); Potassium, Blood 3.5 mmol/L (3.5-5.5); Sodium, Blood 139 mmol/L (136-145); Total Protein, Blood 6.8 g/dL (6.4-8.2); Troponin I <0.015 ng/mL (0.000-0.040)
[2021-07-24 13:43] LABS: BASOPHILS ABSOLUTE AUTO 0.03 K/mm3 (0.00-0.23); BASOPHILS PERCENT AUTO 0 % (0-2); EOSINOPHILS ABSOLUTE AUTO 0.44 K/mm3 (0.00-0.68); EOSINOPHILS PERCENT AUTO 4 % (0-6); Hematocrit 38.4 % (33.0-51.0); Hemoglobin 12.1 g/dL (11.5-16.0); IMMATURE GRAN ABSOLUTE AUTO 0.04 K/mm3 (0.00-0.10); IMMATURE GRAN PERCENT AUTO 0 % (0-1); LYMPHOCYTES ABSOLUTE AUTO 1.59 K/mm3 (0.84-5.20); LYMPHOCYTES PERCENT AUTO 14 % (21-46); MONOCYTES ABSOLUTE AUTO 0.76 K/mm3 (0.16-1.47); MONOCYTES PERCENT AUTO 7 % (4-13); Mean Corpuscular HGB 28.5 pg (26.0-34.0); Mean Corpuscular HGB Conc 31.5 g/dL (31.5-36.5); Mean Corpuscular Volume 90 fL (80-100); Mean Platelet Volume 10.9 fL (9.1-12.4); NEUTROPHILS ABSOLUTE AUTO 8.25 K/mm3 (1.96-9.15); NEUTROPHILS PERCENT AUTO 74 % (41-73); Platelet Count 206 K/mm3 (150-400); RDW Coefficient Variation 16.4 % (11.7-14.2); RDW Standard Deviation 54.5 fL (35.1-46.3); Red Blood Cell Count 4.25 M/mm3 (3.80-5.20); White Blood Cell Count 11.11 K/mm3 (4.00-11.30)
[2021-07-24 14:43] LABS: Influenza A, PCR NEGATIVE (NEGATIVE); Influenza B, PCR NEGATIVE (NEGATIVE); Resp Syncytial Virus, PCR NEGATIVE (NEGATIVE); SARS-Cov-2 (COVID-19) PCR, MMC POSITIVE (NEGATIVE)
== END 2021-07-24 16:11 | disposition home or self-care (01) ==
LOC: ER 12:01
PROVIDERS: Emergency Medicine
DX: U07.1 COVID-19 (principal); I10 Essential (primary) hypertension; E03.9 Hypothyroidism, unspecified; E11.9 Type 2 diabetes mellitus without complications; I25.10 Atherosclerotic heart disease of native coronary artery without angina pectoris; J44.9 Chronic obstructive pulmonary disease, unspecified; K21.9 Gastro-esophageal reflux disease without esophagitis; I25.2 Old myocardial infarction; Z88.8 Allergy status to other drugs, medicaments and biological substances; Z88.0 Allergy status to penicillin; Z88.5 Allergy status to narcotic agent; Z91.040 Latex allergy status; Z91.041 Radiographic dye allergy status; Z79.899 Other long term (current) drug therapy; Z79.82 Long term (current) use of aspirin; Z79.891 Long term (current) use of opiate analgesic
CPT/HCPCS: 0241U; 36415; 71045; 80053; 83880; 84484; 85025; 93005; 93010; 99285-25

== ENCOUNTER 2021-08-23 09:39 | Inpatient (IN) | payer OTHER ==
[~2021-08-23] VITALS: Ht 157.5 cm; Wt 54.4 kg
[~2021-08-23 09:39] MED LIST changes: +DEXA2 PO; +NITR100CA PO
[2021-08-23 12:07] LABS: BASOPHILS ABSOLUTE AUTO 0.05 K/mm3 (0.00-0.23); BASOPHILS PERCENT AUTO 0 % (0-2); EOSINOPHILS ABSOLUTE AUTO 0.09 K/mm3 (0.00-0.68); EOSINOPHILS PERCENT AUTO 1 % (0-6); Hematocrit 44.9 % (33.0-51.0); Hemoglobin 14.4 g/dL (11.5-16.0); IMMATURE GRAN ABSOLUTE AUTO 0.19 K/mm3 (0.00-0.10); IMMATURE GRAN PERCENT AUTO 1 % (0-1); LYMPHOCYTES ABSOLUTE AUTO 1.77 K/mm3 (0.84-5.20); LYMPHOCYTES PERCENT AUTO 9 % (21-46); MONOCYTES ABSOLUTE AUTO 0.81 K/mm3 (0.16-1.47); MONOCYTES PERCENT AUTO 4 % (4-13); Mean Corpuscular HGB 28.6 pg (26.0-34.0); Mean Corpuscular HGB Conc 32.1 g/dL (31.5-36.5); Mean Corpuscular Volume 89 fL (80-100); Mean Platelet Volume 8.8 fL (9.1-12.4); NEUTROPHILS ABSOLUTE AUTO 16.87 K/mm3 (1.96-9.15); NEUTROPHILS PERCENT AUTO 85 % (41-73); Platelet Count 386 K/mm3 (150-400); RDW Coefficient Variation 17.1 % (11.7-14.2); RDW Standard Deviation 55.8 fL (35.1-46.3); Red Blood Cell Count 5.03 M/mm3 (3.80-5.20); White Blood Cell Count 19.78 K/mm3 (4.00-11.30)
[2021-08-23 12:27] LABS: Alanine Aminotransfer (ALT/SGP 13 U/L (12-78); Albumin/Globulin Ratio 0.3 (0.8-1.8); Alk Phos 135 U/L (50-136); Anion Gap 12 mmol/L (6-16); Aspartate Aminotrans (AST/SGOT 16 U/L (12-37); Bilirubin, Total 1.2 mg/dL (0.1-1.0); Blood Urea Nitrogen 15 mg/dL (8-24); Bun/Creatinine Ratio 30.1 (12.0-20.0); CO2, Blood 26 mmol/L (21-32); Calcium, Blood 9.7 mg/dL (8.5-10.1); Chloride, Blood 96 mmol/L (98-108); Globulin, Blood 6.7 g/dL (2.2-4.0); Glomerular Filtration Rate >60 (60-); Glucose, Blood 182 mg/dL (70-99); Potassium, Blood 4.3 mmol/L (3.5-5.5); Sodium, Blood 134 mmol/L (136-145); Total Protein, Blood 8.7 g/dL (6.4-8.2); Troponin I <0.015 ng/mL (0.000-0.040)
[2021-08-24 05:44] LABS: BASOPHILS ABSOLUTE AUTO 0.05 K/mm3 (0.00-0.23); BASOPHILS PERCENT AUTO 0 % (0-2); EOSINOPHILS PERCENT AUTO 0 % (0-6); Hematocrit 39.4 % (33.0-51.0); Hemoglobin 12.6 g/dL (11.5-16.0); IMMATURE GRAN ABSOLUTE AUTO 0.18 K/mm3 (0.00-0.10); IMMATURE GRAN PERCENT AUTO 1 % (0-1); LYMPHOCYTES ABSOLUTE AUTO 1.25 K/mm3 (0.84-5.20); LYMPHOCYTES PERCENT AUTO 6 % (21-46); MONOCYTES PERCENT AUTO 6 % (4-13); Mean Corpuscular HGB 28.7 pg (26.0-34.0); Mean Corpuscular Volume 90 fL (80-100); Mean Platelet Volume 8.8 fL (9.1-12.4); NEUTROPHILS ABSOLUTE AUTO 18.66 K/mm3 (1.96-9.15); NEUTROPHILS PERCENT AUTO 88 % (41-73); Platelet Count 296 K/mm3 (150-400); RDW Coefficient Variation 17.2 % (11.7-14.2); RDW Standard Deviation 56.8 fL (35.1-46.3); Red Blood Cell Count 4.39 M/mm3 (3.80-5.20); White Blood Cell Count 21.34 K/mm3 (4.00-11.30)
[2021-08-24 06:23] LABS: Magnesium, Blood 1.9 mg/dL (1.6-2.4)
[2021-08-24 06:34] LABS: Alanine Aminotransfer (ALT/SGP 10 U/L (12-78); Albumin, Blood 1.5 g/dL (3.4-5.0); Albumin/Globulin Ratio 0.3 (0.8-1.8); Alk Phos 97 U/L (50-136); Anion Gap 7 mmol/L (6-16); Aspartate Aminotrans (AST/SGOT 16 U/L (12-37); Bilirubin, Total 0.5 mg/dL (0.1-1.0); Blood Urea Nitrogen 12 mg/dL (8-24); Bun/Creatinine Ratio 31.3 (12.0-20.0); CO2, Blood 30 mmol/L (21-32); Calcium, Blood 8.4 mg/dL (8.5-10.1); Chloride, Blood 102 mmol/L (98-108); Creatinine, Blood 0.38 mg/dL (0.40-1.00); Globulin, Blood 4.7 g/dL (2.2-4.0); Glomerular Filtration Rate >60 (60-); Glucose, Blood 132 mg/dL (70-99); Sodium, Blood 139 mmol/L (136-145); Total Protein, Blood 6.2 g/dL (6.4-8.2)
--- NOTE | 2021-08-24 10:57 | NUR ---
NOTED DRIED BLOOD IN PATIENT'S HAIR ON LEFT SIDE OF HEAD. PATIENT STATED THAT SHE HAD FALLEN AT HOME AND HIT HER HEAD. WASHED DRIED BLOOD OUT OF PATIENT HAIR AND FOUND ABRASION AND SMALL BUMP.
--- NOTE | 2021-08-24 19:43 | NUR ---
SHIFT SUMMARY PATIENT SLEPT MOST OF SHIFT. PATIENT HAD POOR APPETITE BUT TOLERATED DRINKING ENSURE. ON 4L NC SATING ABOVE 94%. PATIENT RECEIVED A BED BATH TODAY. TOLERATED BUT WAS VERY TIRED AFTERWARDS. VITAL SIGNS STABLE. USES CALL LIGHT APPROPRIATLY. WILL CONTINUE TO MONITOR.
[2021-08-25 05:09] LABS: BASOPHILS ABSOLUTE AUTO 0.04 K/mm3 (0.00-0.23); BASOPHILS PERCENT AUTO 0 % (0-2); EOSINOPHILS ABSOLUTE AUTO 0.03 K/mm3 (0.00-0.68); EOSINOPHILS PERCENT AUTO 0 % (0-6); Hematocrit 35.2 % (33.0-51.0); Hemoglobin 11.5 g/dL (11.5-16.0); IMMATURE GRAN ABSOLUTE AUTO 0.23 K/mm3 (0.00-0.10); IMMATURE GRAN PERCENT AUTO 1 % (0-1); LYMPHOCYTES PERCENT AUTO 6 % (21-46); MONOCYTES ABSOLUTE AUTO 0.74 K/mm3 (0.16-1.47); MONOCYTES PERCENT AUTO 3 % (4-13); Mean Corpuscular HGB 28.5 pg (26.0-34.0); Mean Corpuscular HGB Conc 32.7 g/dL (31.5-36.5); Mean Corpuscular Volume 87 fL (80-100); Mean Platelet Volume 9.2 fL (9.1-12.4); NEUTROPHILS ABSOLUTE AUTO 20.76 K/mm3 (1.96-9.15); NEUTROPHILS PERCENT AUTO 90 % (41-73); Platelet Count 273 K/mm3 (150-400); RDW Coefficient Variation 16.8 % (11.7-14.2); RDW Standard Deviation 53.6 fL (35.1-46.3); Red Blood Cell Count 4.04 M/mm3 (3.80-5.20)
--- NOTE | 2021-08-25 05:18 | NUR ---
SHIFT SUMMARY A/O X4. VITAL SIGNS STABLE THIS SHIFT. TELE IN PLACE WITH REPORT FROM PRIME MINISTER OF SR WITH BBB 65BPM. PAIN TREATED PER EMAR. CONTINUED BEDREST AT THIS TIME. VOIDING AND TOLERATING PO INTAKE. WILL CONTINUE TO MONITOR AND REPORT TO ONCOMING RN.
[2021-08-25 05:40] LABS: Alanine Aminotransfer (ALT/SGP 10 U/L (12-78); Albumin, Blood 1.3 g/dL (3.4-5.0); Albumin/Globulin Ratio 0.3 (0.8-1.8); Alk Phos 86 U/L (50-136); Anion Gap 6 mmol/L (6-16); Aspartate Aminotrans (AST/SGOT 17 U/L (12-37); Bilirubin, Total 0.3 mg/dL (0.1-1.0); Blood Urea Nitrogen 16 mg/dL (8-24); Bun/Creatinine Ratio 40.7 (12.0-20.0); CO2, Blood 31 mmol/L (21-32); Chloride, Blood 101 mmol/L (98-108); Creatinine, Blood 0.39 mg/dL (0.40-1.00); Globulin, Blood 4.2 g/dL (2.2-4.0); Glomerular Filtration Rate >60 (60-); Glucose, Blood 277 mg/dL (70-99); Potassium, Blood 3.9 mmol/L (3.5-5.5); Sodium, Blood 138 mmol/L (136-145); Total Protein, Blood 5.5 g/dL (6.4-8.2)
--- NOTE | 2021-08-25 16:48 | NUR ---
DIANE OBREGON WITH BBB @ 54
--- NOTE | 2021-08-25 17:24 | NUR ---
NO ACUTE CHANGES AT THIS TIME. PT VERY TIRED, BUT MAINTAINING IN THE 90s ON 4l NASAL CANULA. BACK PAIN TREATED PER EMAR. PT AOX4 AND COOPERATIVE OF ALL CARE. NO DISTRESS NOTED AT THIS TIME WILL CONTINUE TO MONITOR.
--- NOTE | 2021-08-26 06:22 | NUR ---
PT with covid 19 , falls, weakness, bradycardia with pulse 50 to 43 all night. Sats up to 100 on 4 l nc & 2 l sat 98 % at rest. Lives alone, has DTR who lives in [place] area. Needs safe Dc plan. unable to care for self safely, had caregive 20 hrs per week but she is too [place] to safely return home. Medicated 2 times with 1 norco 5/325 mg tab with good relief of chronic pain
--- NOTE | 2021-08-26 18:45 | NUR ---
SHIFT SUMMARY PT A/O X2-3 AND REPORTS FEELING VERY WEAK TODAY. SHE IS CURRENTLY ON 4 LITERS O2 VIA NC AND SATTING >95%. SHE IS IN ISOLATION FOR COVID 19 AND ALMOST DONE WITH HER SERIES OF REMDESIVIR. AWAITING SNF PLACEMENT. DID WELL WORKING WITH PHYSICAL AND OCCUPATIONAL THERAPY BUT SOMETIMES WILL NOT PARTICIPATE IN CARE, SUCH GETTING UP TO A CHAIR FOR MEALS. VSS. WILL REPORT TO NOC RN.
--- NOTE | 2021-08-27 05:00 | NUR ---
PT continues on oxygen with covid 19. 2 l NC adequate to keep sats greater than 90%. Continues on tele with bradycardia ave rate 54. Set up on home o2 recently but unable to care for self, recent falls. Appetite improving. Continues incont of urine. PT has bilat heel decubs & sacral injury from laying on floor for over 4 hours after fall. working with PT/OT.
--- NOTE | 2021-08-27 17:01 | NUR ---
SHIFT SUMMARY PATIENT IS ALERT AND ORIENTED X2-3. PATIENT IS ON 2 LITERS OXYGEN SATTING AT 94-95. PATIENT CONTINUES TO HAVE POOR APPETITE TODAY. PATIENT HAS BEEN BRADYCARDIA THE FIRST PART OF SHIFT BUT HAS IMPROVED. NO ACUTE EVENTS THIS SHIFT. VITAL SIGNS REVIEWED. WILL MONITOR UNTIL SHIFT CHANGE.
--- NOTE | 2021-08-28 04:57 | NUR ---
PT with covid 19 & falls continues on oxygen 2 l nc with no desats noted. She is on tele monitor with SR to sinus yesenia at 57. She had several falls at hime 1 day apart & 2nd fall PT lay on floor for at least 4 hours & sustained bilat heel pressure sores as well as sacral pressure injury. PT weak lives alone had 20 hr per week caregiver. DC planning for SNF, PT working with PT OT. Yordy Jamin calls & said PT lost her Sister to Covid AUG 08 2021 here at [facility]. Her Sister was 62 & had RA. Appetite poor, PT does request staff feed her meds whole in applesauce due to extreme weakness. Medicated for chronic pain with helpful effect. incontinent of urine & wearing attends.
[2021-08-28] MEDS ORDERED: DEXA4 PO (14:26)
[2021-08-28] MEDS ORDERED: ALBU90OI INH (14:26)
[2021-08-28] MEDS ORDERED: GUAI600T33 PO (14:27)
[2021-08-28] MEDS ORDERED: INSULIN LI100 UNIT/6 (14:30)
[2021-08-28] MEDS ORDERED: SPIR25 PO (14:31)
[2021-08-28] MEDS ORDERED: VITAMIN D5000 UNIT PO (14:32)
--- NOTE | 2021-08-28 18:00 | NUR ---
PATIENT AAOX2-3, ABLE TO MAKE NEEDS KNOWN. COMPLIANT TO MEDICATUON REGIMEN. CONTINUE ON O2 AT 2L VIA NC. PT REMAINS ON ISOLATION PER COVID - 19, PRECAUTIONARY MEASURES MAINTAINED. PT WAS DISCHARGED TO FACILITY TODAY. LEFT UNIT VIA WHEELCHAIR ACCOMPANIED BY ATTENDANTS X 2. PT REMAINS IN STABLE CONDITION. NO COMPLAINTS OR CONCERNS VOICED. CALLED [facility] REPORT GIVEN TO NURSE.
== END 2021-08-28 17:30 | DRG 177 ==
LOC: ER 09:39 → ERHOLD 15:52 → MEDS 15:52
PROVIDERS: Emergency Medicine; Internal Medicine; Nurse Practitioner Acute Care; ADMIT Internal Medicine
PROC: 8E0ZXY6 Isolation (ICD-10-PCS; principal; 2021-08-23)
PROC: XW033E5 Introduction of Remdesivir Anti-infective into Peripheral Vein, Percutaneous Approach, New Technology Group 5 (ICD-10-PCS; 2021-08-24)
PROC: 3E0DX3Z Introduction of Anti-inflammatory into Mouth and Pharynx, External Approach (ICD-10-PCS; 2021-08-24)
DX: U07.1 COVID-19 (principal); J96.01 Acute respiratory failure with hypoxia; J12.82 Pneumonia due to coronavirus disease 2019; F11.20 Opioid dependence, uncomplicated; N39.0 Urinary tract infection, site not specified; I35.0 Nonrheumatic aortic (valve) stenosis; Z66 Do not resuscitate; E03.9 Hypothyroidism, unspecified; E11.9 Type 2 diabetes mellitus without complications; F32.A Depression, unspecified; I25.10 Atherosclerotic heart disease of native coronary artery without angina pectoris; J44.9 Chronic obstructive pulmonary disease, unspecified; E78.5 Hyperlipidemia, unspecified; G89.29 Other chronic pain; Z98.84 Bariatric surgery status; Z79.82 Long term (current) use of aspirin; Z79.899 Other long term (current) drug therapy; Z88.5 Allergy status to narcotic agent; Z88.8 Allergy status to other drugs, medicaments and biological substances; Z88.0 Allergy status to penicillin; Z88.2 Allergy status to sulfonamides; Z87.891 Personal history of nicotine dependence; D72.828 Other elevated white blood cell count
CPT/HCPCS: 36415; 71045; 80053; 82947; 83605; 83735; 83880; 84484; 85025; 93005; 93010; 93306; 94640; 94762; 96374; 96375; 97110; 97161; 97165; 97530; 99285-25; A9270; J0248; J0696; J1650; J7030; J7050

== ENCOUNTER 2021-09-04 14:06 | Inpatient (IN) | payer OTHER ==
[~2021-09-04] VITALS: Ht 167.6 cm; Wt 55.9 kg
[~2021-09-04 14:06] MED LIST changes: +DEXA4 PO; +GUAI600T33 PO; +INSULIN LI100 UNIT/6; +SPIR25 PO; +VITAMIN D5000 UNIT PO
[2021-09-04 15:38] LABS: Thyroid Stimulating Hormone 0.919 uIU/mL (0.360-4.800)
[2021-09-04 15:46] LABS: Alanine Aminotransfer (ALT/SGP 22 U/L (12-78); Albumin, Blood 1.2 g/dL (3.4-5.0); Albumin/Globulin Ratio 0.2 (0.8-1.8); Alk Phos 138 U/L (50-136); Anion Gap 11 mmol/L (6-16); Aspartate Aminotrans (AST/SGOT 28 U/L (12-37); Bilirubin, Total 1.7 mg/dL (0.1-1.0); Blood Urea Nitrogen 17 mg/dL (8-24); Bun/Creatinine Ratio 54.8 (12.0-20.0); CO2, Blood 23 mmol/L (21-32); Calcium, Blood 8.2 mg/dL (8.5-10.1); Chloride, Blood 81 mmol/L (98-108); Creatinine, Blood 0.31 mg/dL (0.40-1.00); Globulin, Blood 5.1 g/dL (2.2-4.0); Glomerular Filtration Rate >60 (60-); Glucose, Blood 210 mg/dL (70-99); Sodium, Blood 115 mmol/L (136-145); Total Protein, Blood 6.3 g/dL (6.4-8.2)
[2021-09-04 17:10] LABS: Base Excess Venous 2.9 mmol/L; Bicarbonate Venous 26.1 mmol/L (24.0-30.0); PCO2 Venous 48.7 mmHg (38-42); PO2 Venous 162 mmHg (38-42); pH Blood Venous 7.37 (7.34-7.37)
[2021-09-04 17:57] LABS: Hematocrit 33.6 % (33.0-51.0); Hemoglobin 11.6 g/dL (11.5-16.0); Mean Corpuscular HGB 28.7 pg (26.0-34.0); Mean Corpuscular HGB Conc 34.5 g/dL (31.5-36.5); Mean Corpuscular Volume 83 fL (80-100); Mean Platelet Volume 9.5 fL (9.1-12.4); Platelet Count 100 K/mm3 (150-400); RDW Coefficient Variation 15.2 % (11.7-14.2); RDW Standard Deviation 46.8 fL (35.1-46.3); Red Blood Cell Count 4.04 M/mm3 (3.80-5.20)
[2021-09-04 18:22] LABS: BAND PERCENT MAN 39 % (0-8); BASOPHILS PERCENT MAN 0 % (0-2); EOSINOPHILS PERCENT MAN 0 % (0-6); LYMPHOCYTES ABSOLUTE MAN 0.53 K/mm3 (0.84-5.20); LYMPHOCYTES PERCENT MAN 2 % (21-46); METAMYELOCYTE ABSOLUTE MAN 0.53 K/mm3 (0.00-0.00); METAMYELOCYTE PERCENT MAN 2 % (0-0); MONOCYTES ABSOLUTE MAN 1.06 K/mm3 (0.16-1.47); MONOCYTES PERCENT MAN 4 % (4-13); NEUTROPHILS ABSOLUTE MAN 24.56 K/mm3 (1.96-9.15); SEG NEUTROPHILS PERCENT MAN 53 % (41-73); TOTAL CELLS COUNTED 100
[2021-09-05 00:05] LABS: Source, Urine Straight Cath
[2021-09-05 00:13] LABS: Blood, Urine 1+ (Neg); Glucose Qualitative, Urine 3+ (Neg); Ketones, Urine Neg (Neg); Leukocyte Esterase, Urine 1+ (Neg); Nitrite, Urine Neg (Neg); Protein, Urine 2+ (Neg); Urobilinogen, Urine 3+ (Normal); pH, Urine 6.5 (5.0-8.0)
[2021-09-05 00:19] LABS: Appearance, Urine Hazy (Clear); Bilirubin, Urine 1+ (Neg); Color, Urine Amber (P-Yellow)
[2021-09-05 00:20] LABS: Amorphous Mod (0-Heavy); Bacteria Rare /hpf; Mucus Light (0-Heavy); Red Blood Cells, Urine 0-2 /hpf (0-2); Squamous Epithelial Cells Few /hpf (Few)
[2021-09-05 00:21] LABS: RBC Cast 0-2 /lpf (0)
[2021-09-05 00:26] LABS: U Amphetamine Screen Not Detected; U Barbituate Screen Not Detected; U Benzodiazapine Screen Not Detected; U Buprenorphine Screen Not Detected; U Cannabinoids Screen Not Detected; U Cocaine Screen Not Detected; U Methadone Screen Not Detected; U Methamphetamine Screen Not Detected; U Opiates Screen DETECTED; U Oxycodone Screen Not Detected; U Phencyclidine Screen Not Detected; U Propoxyphene Screen Not Detected
--- NOTE | 2021-09-05 01:03 | NUR ---
ASSUMPTION OF CARE: PATIENT ARRIVED BY BED FROM ED. PER REPORT MULTIPLE ATTEMPTS WERE MADE TO STRAIGHT CATH AND INSERT MOYER TO NO AVAIL. UPON ARRIVAL PATIENT WAS WEARING NON-HOSPITAL ISSUED ATTENDS SATURATED WITH URINE AND FECES. PATIENT WAS CLEANED, CHANGED, BLADDER SCANNED (414 ML), AND A NON-LATEX MOYER WAS INSERTED. CIVIL ESTIMATOR INSERTED POWERGLIDE DURING PCU ADMISSIO AND IS CURRENTLY RUNNING NS 75 MLS/HR. BP WAS 91/52 AND O2 SAT 91% ON 4L NC. PATIENT UNRESPONSIVE TO QUESTIONS OR DIRECTIONS. PRESSURE ULCERS AND WOUNDS WERE PHOTOGRAPHED. PATIENT COVERED IN WARMED BLANKETS AND ON CONTINUOUS PULSE OX.
[2021-09-05] MEDS ORDERED: NYAMYC15 G1 TOP (02:32)
[2021-09-05 04:48] LABS: Hematocrit 30.4 % (33.0-51.0); Hemoglobin 10.2 g/dL (11.5-16.0); Mean Corpuscular HGB 28.7 pg (26.0-34.0); Mean Corpuscular HGB Conc 33.6 g/dL (31.5-36.5); Mean Corpuscular Volume 85 fL (80-100); Mean Platelet Volume 9.5 fL (9.1-12.4); Platelet Count 77 K/mm3 (150-400); RDW Coefficient Variation 15.4 % (11.7-14.2); RDW Standard Deviation 48.5 fL (35.1-46.3); Red Blood Cell Count 3.56 M/mm3 (3.80-5.20); White Blood Cell Count 10.87 K/mm3 (4.00-11.30)
[2021-09-05 05:03] LABS: Alanine Aminotransfer (ALT/SGP 17 U/L (12-78); Albumin, Blood 1.6 g/dL (3.4-5.0); Albumin/Globulin Ratio 0.4 (0.8-1.8); Alk Phos 81 U/L (50-136); Anion Gap 9 mmol/L (6-16); Aspartate Aminotrans (AST/SGOT 17 U/L (12-37); Bilirubin, Total 1.6 mg/dL (0.1-1.0); Blood Urea Nitrogen 21 mg/dL (8-24); Bun/Creatinine Ratio 67.5 (12.0-20.0); CO2, Blood 28 mmol/L (21-32); Calcium, Blood 8.1 mg/dL (8.5-10.1); Chloride, Blood 86 mmol/L (98-108); Creatinine, Blood 0.31 mg/dL (0.40-1.00); Globulin, Blood 3.6 g/dL (2.2-4.0); Glomerular Filtration Rate >60 (60-); Glucose, Blood 161 mg/dL (70-99); Potassium, Blood 4.2 mmol/L (3.5-5.5); Sodium, Blood 123 mmol/L (136-145); Total Protein, Blood 5.2 g/dL (6.4-8.2)
[2021-09-05 05:17] LABS: BAND PERCENT MAN 37 % (0-8); BASOPHILS PERCENT MAN 0 % (0-2); EOSINOPHILS PERCENT MAN 0 % (0-6); LYMPHOCYTES ABSOLUTE MAN 0.32 K/mm3 (0.84-5.20); LYMPHOCYTES PERCENT MAN 3 % (21-46); MONOCYTES ABSOLUTE MAN 0.21 K/mm3 (0.16-1.47); MONOCYTES PERCENT MAN 2 % (4-13); MYELOCYTE PERCENT MAN 1 % (0-0); NEUTROPHILS ABSOLUTE MAN 10.21 K/mm3 (1.96-9.15); SEG NEUTROPHILS PERCENT MAN 57 % (41-73); TOTAL CELLS COUNTED 100
--- NOTE | 2021-09-05 06:37 | NUR ---
SHIFT SUMMARY: PATIENT ADMITTED WITH DX OF HYPOXIC RESPIRATORY FAILURE AND SEVERE SEPSIS. BPS WERE SOFT BUT HAVE IMPROVED WITH FLUID RESUSCITATION. PATIENT WAS OBTUNDED BUT HAS BEGUN VERBALIZING IN THE LAST HOUR. O2 SATS HAVE FLUCTUATED 88-96% ON 4L NC; PATIENT IS MOUTH BREATHER WHEN SLEEPING. PATIENT ARRIVED ON UNIT IN FECES SATURATED NON-HOSPITAL ISSUED ATTENDS. PATIENT WAS CLEANED AND NON-LATEX MOYER WAS PLACED. MOYER IS DRAINING TO GRAVITY - URINE IS DARK OLESYA WITH STRONG ODOR. CAPILLARY REFILL IS >3 SECONDS AND SKIN IS PALE. Q2 TURNS AND ORAL CARE PER PROTOCOL. PATIENT HAS SEVERAL WOUNDS/TEARS AND PRESSURE ULCERS THAT HAVE BEEN PHOTOGRAPHED AND ARE IN CHART. WILL CONTINUE TO MONITOR AND REPORT TO DAY RN.
--- NOTE | 2021-09-05 06:55 | NUR ---
HYPOXIC EVENT: PATIENT DROPPED TO 70% SAT AND WAS NOT RECOVERING. RT CALLED AND PERSONAL COACH PUT REBREATHER ON HER IN THE MEANTIME. ATA BROWN ASSESSING NOW.
[2021-09-05 10:55] LABS: Anion Gap 8 mmol/L (6-16); Blood Urea Nitrogen 22 mg/dL (8-24); Bun/Creatinine Ratio 53.1 (12.0-20.0); CO2, Blood 29 mmol/L (21-32); Calcium, Blood 7.7 mg/dL (8.5-10.1); Chloride, Blood 88 mmol/L (98-108); Creatinine, Blood 0.41 mg/dL (0.40-1.00); Glomerular Filtration Rate >60 (60-); Glucose, Blood 130 mg/dL (70-99); Potassium, Blood 4.4 mmol/L (3.5-5.5); Sodium, Blood 125 mmol/L (136-145)
--- NOTE | 2021-09-05 11:21 | NUR ---
PATIENT ABLE TO OPEN EYES TO SOUND, NODDING HEAD YES AND NO TO SOME QUESTIONS. NONVERBAL AT THIS TIME. TRIED TO MOUTH SOME WORDS. PUPILS EQUAL AND REACTIVE. NOT MOVING ARMS OR LEGS. HOLDING ON TO SIDE RAIL WHEN TURNING. NOT FOLLOWING DIRECTIONS. THIS AM PATIENT WAS REQUIRING HIGH O2. THE NON REBREATHERA ND HIGH FLOW NASAL CANNULA WHERE IN PLACE, NOW ABLE TO TITRATE DOWN TO 5L HIGH FLOW NASAL CANNULA SATING LOW 90'S. LUNGS SOUNDING DIMINISHED. VERY WEAK COUGH THAT SOUND MOIST. SUCTION AT BEDSIDE. TELE SHOWING SINUS TACH WITH HR 90'110'S. BP SOFT WITH SBP IN THE 80'S. DR'S AWARE. MOYER CATH IN PLACE DRAINING TO GRAVITY. NS INFUSING WELL ANTIBIOTICS. SPOKE WITH DAUGHTER ON PHONE WHO STATES HER MOM IS NORMALLY ALERT AND ORIENTED. UPDATE PROVIDED. WILL CONTINUE TO MONITOR.
--- NOTE | 2021-09-05 14:30 | NUR ---
UPDATE: DR. RODRIGUEZ CALLED TO UPDATE ON BP TREND. ORDERS TO INFUSE THE REST OF THE NORMAL SALINE BAG THAT IS HANGING AT 150ML/HR AND THEN TO RESUME MAINTANCE FLUIDS AT 75 ML/HR. NORMAL SALINE RUNNING AT 150 ML/HR FOR THE REMAINDER OF CURRENT BAG HANGING AT THIS TIME. SBP RANGING FROM 90-110'S. MAP AVERAGING MID 60'S.
[2021-09-05 17:54] LABS: Anion Gap 5 mmol/L (6-16); Blood Urea Nitrogen 23 mg/dL (8-24); Bun/Creatinine Ratio 59.3 (12.0-20.0); CO2, Blood 29 mmol/L (21-32); Chloride, Blood 91 mmol/L (98-108); Creatinine, Blood 0.39 mg/dL (0.40-1.00); Glomerular Filtration Rate >60 (60-); Glucose, Blood 118 mg/dL (70-99); Potassium, Blood 4.2 mmol/L (3.5-5.5); Sodium, Blood 125 mmol/L (136-145)
--- NOTE | 2021-09-05 18:01 | NUR ---
SHIFT SUMMARY: PATIENT REMAINS NONVERBAL. OPEN EYES, NODS HEAD YES/NO AND IS ABLE TO MOUTH SOME WORDS. OPENING EYES TO SOUND. PUPILS REMAIN EQUAL AND REACTIVE. NOT FOLLOWING COMMANDS SUCH TO HOME INSURANCE AGENT FINGERS OR MOVE HANDS/FEET. ON 5L NASAL CANNULA SATING LOW-MID 90'S. REMAINS TO HAVE WEAK COUGH THAT IS WET SOUNDING. TELE REMAINS SINUS TACH WITH HR RANGING FROM 90-110'S. DOES NOT SEEM TO BE IN ANY DISTRESS. WHEN ASKED IF PATIENT IS IN PAIN, SHE SHAKES HEAD NO. Q6 BLOOD SUGARS. Q2 TURNING AND NEEDED. MEPILEX APPLIED TO COCCYX AND HEELS. VERY SMALL BM THIS EVENING. REMAINDER OF NORMAL SALINE BAG INFUSING AT 150 ML/HR PER DR. RODRIGUEZ, SEE NURSE NOTIFY ORDER. NEXT SALINE BAG TO RUN AT 75ML/HR SEE EMAR ORDER. ANTIBIOTICS INFUSED. POWERGLIDE INFUSING, AND DRAWING WELL. WILL CONTINUE TO MONITOR AND REPORT OFF TO ONCOMING RN.
[2021-09-05 20:51] LABS: Anion Gap 7 mmol/L (6-16); Blood Urea Nitrogen 23 mg/dL (8-24); Bun/Creatinine Ratio 61.3 (12.0-20.0); CO2, Blood 28 mmol/L (21-32); Calcium, Blood 7.9 mg/dL (8.5-10.1); Chloride, Blood 91 mmol/L (98-108); Creatinine, Blood 0.38 mg/dL (0.40-1.00); Glomerular Filtration Rate >60 (60-); Glucose, Blood 124 mg/dL (70-99); Potassium, Blood 4.4 mmol/L (3.5-5.5); Sodium, Blood 126 mmol/L (136-145)
--- NOTE | 2021-09-06 01:30 | NUR ---
PATIENT OXYGEN SATURATION DROPPED TO 80%; TITRATED UP FROM 4L TO 10 THEN 15LPM WITH NRB OVER THE NC AND OXYGEN SATURATION 91% THEN BACK DOWN TO 80%. RT NORMAN CALLED TO ROOM.
--- NOTE | 2021-09-06 01:40 | NUR ---
PATIENT PLACED ON BIPAP; LOAN COLLECTOR NOTIFIED OF SITUATION; DR. JOSUE CALLED REGARDING CRACKLES IN LUNGS, ELEVATED BNP UPON ADMISSION, PATIENT UNRESPONSIVE AND REQUIRING BIPAP; ORDERS FOR BUMEX DUE TO PATIENT ALLERGY IN CHART TO LASIX. DR. JOSUE NOTIFIED OF SOFT BP; ORDERS TO GIVE BUMEX.
--- NOTE | 2021-09-06 01:45 | NUR ---
PATIENT OXYGEN SATURATION IN 60'S AND POSSIBLY LOWER; DISCUSSED WITH FLUOROSCOPE OPERATOR AND JACQUI Denton RN CALLED DONNIE (PATIENT'S DAUGHTER) TO UPDATE; SEE OTHER NOTE FOR SPECIFICS.
--- NOTE | 2021-09-06 02:00 | NUR ---
IV BUMEX GIVEN; DIFFICULT TO GET OXYGEN SATURATION ON PATIENT; LETHARGIC; NOT FOLLOWING COMMANDS OR OPENING EYES. BIPAP 20/10 W/ 100% FIO2; NS STOPPED PER ORDER. BP SOFT.
--- NOTE | 2021-09-06 02:12 | NUR ---
CALL PLACED TO FAMILY AT 0135 RE: PATIENT'S DECLINING STATUS. RT NORMAN, FAYE MOYER RN, AND KARTIK PARKER WERE IN PATIENT'S ROOM. PATIENT'S O2 SAT HAD DROPPED TO 30-60S. BIPAP WAS APPLIED WITH LITTLE IMPROVEMENT. THIS RN CALLED PATIENT'S DAUGHTER DONNIE AND INFORMED HER OF PATIENT'S CURRENT STATUS. DONNIE ASKED THAT WE "KEEP HER COMFORTABLE AND CALL WHEN SHE'S PASSED." PATIENT CURRENTLY SATTING 60-74% ON 100%, BP 74/48 (56).
[2021-09-06 02:16] LABS: Anion Gap 5 mmol/L (6-16); Blood Urea Nitrogen 25 mg/dL (8-24); Bun/Creatinine Ratio 56.6 (12.0-20.0); CO2, Blood 29 mmol/L (21-32); Calcium, Blood 8.3 mg/dL (8.5-10.1); Chloride, Blood 91 mmol/L (98-108); Creatinine, Blood 0.44 mg/dL (0.40-1.00); Glomerular Filtration Rate >60 (60-); Glucose, Blood 131 mg/dL (70-99); Potassium, Blood 4.7 mmol/L (3.5-5.5); Sodium, Blood 125 mmol/L (136-145)
--- NOTE | 2021-09-06 05:22 | NUR ---
FINAL DISCHARGE: CALLED TO ROOM BY WASTE ELIMINATION D/T PATIENT IN ASYSTOLE. TWO NURSE VERIFICATION WITH FAYE MOYER RN, NO FEMORAL PULSE FELT FOR 1 MINUTE, BREATH AND HEART SOUNDS ABSENT. TIME OF CALLED BY THIS RN IN ABSENCE OF MD. PATIENT PASSED PEACEFULLY IN HER SLEEP. MUSICAL PERFORMER NOTIFIED BY INDUSTRIAL ELECTRICIAN UCHE MCCARTY. JOSELO NOTIFIED BY FAYE MOYER. THIS RN NOTIFIED THE PATIENT'S DAUGHTER, DONNIE, WHO CHOSE NOT TO COME IN. FAMILY WAS COMING FROM OUT OF TOWN TO SAY GOODBYE, BUT PATIENT HAS PASSED "WILL PROCESS TOGETHER AT HOME." DONNIE RECALLED HER MOM SAYING TO USE "[facility]," WHICH DOES NOT EXIST. [facility] WILL BE NOTIFIED FOR MEDICAL DEVICE. FINAL DISCHARGE DOCUMENTATION HAS BEEN STARTED - WAITING FOR DONOR HOTLINE TO CALL BACK.
--- NOTE | 2021-09-06 05:48 | NUR ---
HOME NOTIFIED: THIS RN CALLED [facility] FOR COLLECTION. TRANSPORT WILL ARRIVE "IN ABOUT AN HOUR."
== END 2021-09-06 07:40 | DRG 871 ==
LOC: ER 14:06 → PCU 19:12
PROVIDERS: Student in an Organized Health Care Education/Training Program; ADMIT Internal Medicine
PROC: 5A09357 Assistance with Respiratory Ventilation, Less than 24 Consecutive Hours, Continuous Positive Airway Pressure (ICD-10-PCS; principal; 2021-09-06)
DX: A41.9 Sepsis, unspecified organism (principal); J96.01 Acute respiratory failure with hypoxia; J15.9 Unspecified bacterial pneumonia; G92.8 Other toxic encephalopathy; Z66 Do not resuscitate; J12.82 Pneumonia due to coronavirus disease 2019; I46.9 Cardiac arrest, cause unspecified; U07.1 COVID-19; G93.1 Anoxic brain damage, not elsewhere classified; E87.1 Hypo-osmolality and hyponatremia; E87.2 Acidosis; J44.0 Chronic obstructive pulmonary disease with (acute) lower respiratory infection; E86.0 Dehydration; R65.20 Severe sepsis without septic shock; I10 Essential (primary) hypertension; E03.9 Hypothyroidism, unspecified; F32.A Depression, unspecified; E11.9 Type 2 diabetes mellitus without complications; I25.10 Atherosclerotic heart disease of native coronary artery without angina pectoris; K21.9 Gastro-esophageal reflux disease without esophagitis; G89.29 Other chronic pain; M54.9 Dorsalgia, unspecified; Z87.891 Personal history of nicotine dependence; Z98.84 Bariatric surgery status; I25.2 Old myocardial infarction; Z86.14 Personal history of Methicillin resistant Staphylococcus aureus infection; Z88.0 Allergy status to penicillin; Z91.040 Latex allergy status; Z91.041 Radiographic dye allergy status; Z88.5 Allergy status to narcotic agent; Z79.4 Long term (current) use of insulin; Z79.82 Long term (current) use of aspirin; Z79.899 Other long term (current) drug therapy
CPT/HCPCS: 51702; 70450; 71045; 80048; 80053; 81001; 82803; 82947; 83605; 83880; 84145; 84443; 84484; 85025; 87086; 87449; 93005; 93010; 94640; 94660; 96365; 96375; 99285-25; A9270; C1751; J0692; J1650; J2185; J3370; J7030; J7050; P9046